=== PATIENT | male | born 1985 | race African-American/Black ===

== ENCOUNTER → 2025-04-01 08:41 | Outpatient (CLI) | payer OTHER, SELFPAY ==
--- NOTE | 2025-04-01 08:46 | DI.RAD.S_ITS ---
PROCEDURE: XR CHEST 2V INDICATIONS: RESP CONDITION; SLEEP APNEA TECHNIQUE: 2 views of the chest were acquired. COMPARISON: None. FINDINGS: Heart, mediastinum and pulmonary vascular: Heart is normal in size and configuration. Mediastinum is unremarkable. Pulmonary vascular is normal. Lungs: Clear Pleural spaces: Normal-no effusions or pneumothorax. Bones and soft tissues: Normal IMPRESSION: Normal chest. Dictated by: León Lopez M.D. on 04/02/2025 at 10:44 Approved by: León Lopez M.D. on 04/02/2025 at 10:45
== END ==
LOC: RESP 08:46
PROVIDERS: Referring Provider Chiropractor; Visit Provider Chiropractor
DX: G47.30 Sleep apnea, unspecified (principal)
CPT/HCPCS: 71046; 94060